=== PATIENT | female | born 1965 | race Caucasian/White ===

== ENCOUNTER 2017-11-09 20:47 | Emergency (ER) | payer MEDICARE ==
[2017-11-09] MEDS: diphenhydrAMINE INJ 50MG/ML VIAL (J1200) IV (19:11)
[2017-11-09] MEDS: dexameTHASONE 20 MG/5 ML VIAL (J1100) IV (19:14)
[2017-11-09] MEDS: IPRATROPIUM 0.5MG/ALBUTEROL 2.5MG INH SOL UD 3ML (DUONEB)(J7620) NEB (20:52)
[2017-11-09 21:34] LABS: ABG BASE EXCESS -7.3 (-2.0-2.0); ABG HCO3 17.6 MEQ/L (22.0-26.0); ABG O2 SATURATION 96.6 % (95.0-99.0); ABG PARTIAL PRESSURE CO2 34.2 mmHg (35.0-45.0); ABG STANDARD HCO3 18.6 MEQ/L (22.0-26.0); ABG TOTAL CO2 18.7 MEQ/L (22.0-29.0)
== END 2017-11-09 22:30 | disposition home or self-care (01) ==
LOC: M ED 20:47
DX: T78.1XXA Other adverse food reactions, not elsewhere classified, initial encounter (principal); R22.0 Localized swelling, mass and lump, head; R21 Rash and other nonspecific skin eruption; Y92.89 Other specified places as the place of occurrence of the external cause; J45.909 Unspecified asthma, uncomplicated; Z79.899 Other long term (current) drug therapy
CPT/HCPCS: J1200